=== PATIENT | male | born 1945 | race Caucasian/White ===

== ENCOUNTER 2017-11-11 09:52 | Outpatient (CLI) | payer OTHER | END 2017-11-11 17:44 | disposition home or self-care (01) | LOC: SMI 09:52 | PROVIDERS: ATTEND Family Medicine | DX: G31.9 Degenerative disease of nervous system, unspecified (principal); A41.9 Sepsis, unspecified organism; N39.0 Urinary tract infection, site not specified; I10 Essential (primary) hypertension | CPT/HCPCS: 70551 ==